=== PATIENT | female | born 1980 | race Caucasian/White ===

== ENCOUNTER 2018-11-22 00:11 | Emergency (ER) | payer BC ==
[2018-11-22] MEDS ORDERED: TETANUS & DIPHTHERIA TOX,ADULT 0.5 ML VIAL ONE (00:59)
[2018-11-22] MEDS ORDERED: IBUPROFEN 200 MG TAB PO ONE (01:55)
[2018-11-22] MEDS ORDERED: IBUPROFEN 400 MG TAB ONE (01:55)
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
[2018-11-22 04:31] VITALS: TEMP 98.2
[2018-11-22 04:34] VITALS: O2SAT 97
[2018-11-22 04:36] VITALS: BP 128/75
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
== END 2018-11-22 03:56 | disposition home or self-care (01) ==
LOC: ER 00:11
DX: S00.93XA Contusion of unspecified part of head, initial encounter (principal); F17.210 Nicotine dependence, cigarettes, uncomplicated; Y04.2XXA Assault by strike against or bumped into by another person, initial encounter; Y93.89 Activity, other specified; Y92.89 Other specified places as the place of occurrence of the external cause; Z23 Encounter for immunization; Z91.040 Latex allergy status
CPT/HCPCS: 70450; 72125; 90471; 90714; 99284